=== PATIENT | female | born 1950 | race Hispanic/Latino ===

== ENCOUNTER 2022-07-16 16:31 | Inpatient (IN) | payer SELFPAY ==
--- NOTE | 2022-07-16 18:01 | RAD REPORT ---
EXAM DESCRIPTION: RAD - Chest Single View - 07/16/2022 5:46 pm CLINICAL HISTORY: FEVER Chest pain. COMPARISON: No comparisons FINDINGS: Portable technique limits examination quality. Bilateral interstitial lung markings are present and prominent suggesting a viral infection or inters titial pneumonia. The heart is upper limit normal in size. No displaced fractures.
[2022-07-16] MEDS ORDERED: NA CHLORIDE 0.9% 0 ML ONE (20:00)
[2022-07-16 20:21] LABS: Urine Blood Trace-intact (Negative); Urine Glucose 2+ (Negative); Urine Protein 1+ (Negative); Urine Specific Gravity 1.025 (1.005-1.030)
[2022-07-16] MEDS ORDERED: NA CHLORIDE 0.9% 1,000 ML ONE (20:34)
[2022-07-16 20:38] LABS: Urine Bacteria <20 /HPF (<20); Urine Crystals Unidentified Few /HPF (None Seen); Urine Mucus 2+ /HPF (None Seen)
--- NOTE | 2022-07-16 21:19 | RAD REPORT ---
EXAM DESCRIPTION: CT - Stone Protocol - 07/16/2022 9:05 pm CLINICAL HISTORY: Flank pain. low back pain COMPARISON: No comparisons TECHNIQUE: Axial images were obtained without oral or IV contrast. Lack of contrast limits solid org an and vascular assessment. The [id number] spans the entirety of the system partially obscuring uppermost abdomen and lung bases. Coronal reformatted images were obtained and reviewed. All CT scans are performed using dose optimization technique as appropriate and may include automated exposure control or mA/KV adjustment according to patient size. FINDINGS: Mild hazy opacities are present in the lung bases. Small hiatal hernia. Imaged portions of the liver and spleen show no suspicious findings on non-contrast imaging.Small sto titi are present in the gallbladder. The pancreas and adrenal glands are normal. No pathologic lymphad enopathy in the abdomen or pelvis. No urinary tract stones or obstructive uropathy. No bowel obstruction, free air, free fluid or abscess. Normal appendix noted. No significant bony abnormality. IMPRESSION: Cholelithiasis. No renal stone or hydronephrosis.
[2022-07-16 21:27] LABS: SARS-COV-2 RT PCR NEGATIVE (NEGATIVE)
[2022-07-16] MEDS ORDERED: NA CHLORIDE 0.9% 50 ML IV ONE (21:36)
[2022-07-16] MEDS ORDERED: CEFTRIAXONE 1000 MG/VIAL ONE (21:36)
[2022-07-16 21:42] LABS: Albumin 3.4 g/dL (3.4-5.0); Bilirubin Direct 0.2 mg/dL (0-0.2); Bilirubin Total 0.7 mg/dL (0.2-1.0); Magnesium 1.8 mg/dL (1.8-2.4); Potassium 3.9 mmol/L (3.5-5.1); Protein, Total 7.6 g/dL (6.4-8.2); Troponin High Sensitivity 8.3 pg/mL (<58.9)
--- NOTE | 2022-07-16 22:11 | ER ---
Nurse's Notes [facility] Name: Kenia Edwards Age: 71 yrs Sex: Female : 1950 Arrival Date: 07/16/2022 Time: 16:33 Bed 27 Private MD: Diagnosis: Pneumonia, unspecified organism;UTI/ Urinary tract infection, site not specified;Other cholelithiasis without obstruction;Severe sepsis with septic shock Presentation: 07/16 16:35 Chief complaint: Patient states: Fever - toned out EMS to home for fever. Coronavirus iw screen: At this time, the client does not indicate any symptoms associated with coronavirus-19. Ebola Screen: No symptoms or risks identified at this time. Initial Sepsis Screen: Does the patient meet any 2 criteria? No. Patient's initial sepsis screen is negative. Does the patient have a suspected source of infection? No. Patient's initial sepsis screen is negative. Risk Assessment: Do you want to hurt yourself or someone else? Patient reports no desire to harm self or others. Onset of symptoms was July 16, 2022. 16:35 Method Of Arrival: EMS: [facility] iw 16:35 Acuity: DONNA 4 iw 18:11 Acuity: DONNA 3 iw Triage Assessment: 16:36 General: Appears in no apparent distress. comfortable, Behavior is calm, cooperative, iw appropriate for age. Pain: Denies pain. EENT: No signs and/or symptoms were reported regarding the EENT system. Neuro: Level of Consciousness is awake, alert, obeys commands, Oriented to person, place, time, situation. Cardiovascular: Capillary refill < 3 seconds Patient's skin is warm and dry. Respiratory: Airway is patent Respiratory effort is even, unlabored. GI: Abdomen is flat, non-distended. : No signs and/or symptoms were reported regarding the genitourinary system. Derm: No signs and/or symptoms reported regarding the dermatologic system. Musculoskeletal: No signs and/or symptoms reported regarding the musculoskeletal system. Historical: - Allergies: 16:36 No Known Allergies; iw - PMHx: 16:36 Hypertensive disorder; iw - PSHx: 16:36 None; iw - Immunization history:: Adult Immunizations up to date, Client reports receiving the 2nd dose of the Covid vaccine. - Social history:: Smoking status: Patient denies any tobacco usage or history of. Patient/guardian denies using alcohol. Screenin:30 Abuse screen: Denies threats or abuse. Denies injuries from another. Nutritional eh3 screening: No deficits noted. Tuberculosis screening: No symptoms or risk factors identified. Fall Risk None identified. Assessment: 18:30 General: Appears in no apparent distress. comfortable, Behavior is calm, cooperative, eh3 appropriate for age. Pain: Complains of pain in head Pain does not radiate. Pain currently is 5 out of 10 on a pain scale. Quality of pain is described as aching, Pain began 1 day ago. Is intermittent. Neuro: Level of Consciousness is awake, alert, obeys commands, Oriented to person, place, time, situation. Cardiovascular: Capillary refill < 3 seconds Patient's skin is warm and dry. Respiratory: Airway is patent Respiratory effort is even, unlabored, Respiratory pattern is regular, symmetrical. GI: No signs and/or symptoms were reported involving the gastrointestinal system. : No signs and/or symptoms were reported regarding the genitourinary system. EENT: No signs and/or symptoms were reported regarding the EENT system. Derm: No signs and/or symptoms reported regarding the dermatologic system. Musculoskeletal: No signs and/or symptoms reported regarding the musculoskeletal system. 19:30 Reassessment: Patient and/or family updated on plan of care and expected duration. Pain eh3 level reassessed. Patient is alert, oriented x 3, equal unlabored respirations, skin warm/dry/pink. 20:30 Reassessment: Patient and/or family updated on plan of care and expected duration. Pain eh3 level reassessed. Patient is alert, oriented x 3, equal unlabored respirations, skin warm/dry/pink. 21:30 Reassessment: Patient and/or family updated on plan of care and expected duration. Pain eh3 level reassessed. Patient is alert, oriented x 3, equal unlabored respirations, skin warm/dry/pink. 22:30 Reassessment: Patient and/or family updated on plan of care and expected duration. Pain eh3 level reassessed. Patient is alert, oriented x 3, equal unlabored respirations, skin warm/dry/pink. Vital Signs: 16:35 BP 140 / 80; Pulse 105; Resp 18; Temp 101.0(O); Pulse Ox 95% on R/A; Weight 83.91 kg; iw Height 5 ft. 2 in. (157.48 cm); Pain 0/10; 18:30 BP 107 / 44; Pulse 98; Resp 18; Temp 99.2(O); Pulse Ox 99% on R/A; eh3 19:30 BP 114 / 53; Pulse 97; Resp 20; Pulse Ox 97% on R/A; eh3 20:30 BP 102 / 49; Pulse 93; Resp 13; Pulse Ox 97% on R/A; eh3 21:30 BP 105 / 71; Pulse 90; Resp 19; Pulse Ox 98% on R/A; eh3 22:30 BP 100 / 53; Pulse 87; Resp 18; Pulse Ox 98% on R/A; eh3 16:35 Body Mass Index 33.84 (83.91 kg, 157.48 cm) iw Vitals: 18:30 Cardiac Rhythm Assessment Sinus rhythm. eh3 ED Course: 16:33 Patient arrived in ED. am2 16:36 Triage completed. iw 16:36 Arm band placed on right wrist. iw 16:45 Behzad Jolley PA is PHCP. cp 16:45 Behzad Gonsalez MD is Attending Physician. cp 17:48 XRAY Chest (1 view) In Process Unspecified. EDMS 18:15 Annabel Heath, RN is Primary Nurse. eh3 18:30 Patient has correct armband on for positive identification. Bed in low position. Call eh3 light in reach. Side rails up X2. Adult w/ patient. Client placed on continuous cardiac and pulse oximetry monitoring. NIBP monitoring applied. Door closed. Noise minimized. Pillow given. 19:10 Inserted saline lock: 22 gauge in left antecubital area, using aseptic technique. Blood eh3 collected. 21:07 CT Stone Protocol In Process Unspecified. EDMS 22:09 Orlando Mccauley MD is Hospitalizing Provider. cp 22:31 US Abdomen Limited In Process Unspecified. EDMS 23:40 No provider procedures requiring assistance completed. Patient admitted, IV remains in eh3 place. Administered Medications: 20:09 Not Given (Physician Discretion): NS 0.9% 500 ml IV at 250 ml/hr continuous cp 20:30 Drug: NS 0.9% 1000 ml Route: IV; Rate: 500 ml/hr; Site: left antecubital; [facility] 22:30 Follow up: IV Status: Completed infusion; IV Intake: 1000ml [facility] 21:30 Drug: Rocephin - (cefTRIAXone) 1 grams Route: IVPB; Infused Over: 30 mins; Site: left [facility] antecubital; 22:00 Follow up: IV Status: Completed infusion; IV Intake: 50ml [facility] 23:00 Drug: Zithromax (azithromycin) 500 mg Route: IVPB; Infused Over: 1 hrs; [facility]; 07/17 00:42 Follow up: IV Status: Infusion continued upon admission [facility] 12 23:30 Drug: NS 0.9% (30 ml/kg) 30 ml/kg Route: IV; Rate: bolus; Site: left antecubital; [facility] 07/17 00:42 Follow up: IV Status: Infusion continued upon admission [facility] Medication: 07/16 23:41 VIS not applicable for this client. [facility] Intake: 22:00 IV: 50ml; Total: 50ml. [facility] 22:30 IV: 1000ml; Total: 1050ml. [facility] Outcome: 22:10 Decision to Hospitalize by Provider. cp 23:57 Patient left the ED. [facility] 07/17 00:43 Admitted to Med/surg accompanied by tech, via wheelchair, Report called to Julieta [facility] Condition: stable Instructed on the need for admit. Signatures: Dispatcher [employer] Caty Freeman RN Behzad Clarke PA PA cp Moreno, Amanda Annabel Calle RN RN 3
--- NOTE | 2022-07-16 22:11 | EDPHYS ---
Physician Documentation [facility] Name: Kenia Edwards Age: 71 yrs Sex: Female : 1950 Arrival Date: 07/16/2022 Time: 16:33 Bed 27 Private MD: ED Physician Behzad Gonsalez HPI: 07/16 17:40 This 71 yrs old Female presents to ER via EMS with complaints of Fever, shaky. cp 17:40 The patient reports fever, with an emergency department temperature of 101 degrees cp Fahrenheit. 17:40 Onset: The symptoms/episode began/occurred today. cp 17:40 Associated signs and symptoms: Pertinent positives: low back pain, Pertinent negatives: cp abdominal pain, altered mental status, chest pain, cough, diarrhea, headache, skin rash, sore throat, vomiting. Severity of symptoms: in the emergency department the symptoms are unchanged despite home interventions. Historical: - Allergies: 16:36 No Known Allergies; iw - PMHx: 16:36 Hypertensive disorder; iw - PSHx: 16:36 None; iw - Immunization history:: Adult Immunizations up to date, Client reports receiving the 2nd dose of the Covid vaccine. - Social history:: Smoking status: Patient denies any tobacco usage or history of. Patient/guardian denies using alcohol. ROS: 17:50 Constitutional: Positive for fever, Negative for body aches, chills, poor PO intake. cp 17:50 Eyes: Negative for injury, pain, redness, and discharge. cp 17:50 ENT: Negative for drainage from ear(s), ear pain, sore throat, difficulty swallowing, difficulty handling secretions. 17:50 Neck: Negative for pain with movement, pain at rest, stiffness. 17:50 Cardiovascular: Negative for chest pain, edema, palpitations. 17:50 Respiratory: Negative for cough, shortness of breath, wheezing. 17:50 Abdomen/GI: Negative for abdominal pain, vomiting, diarrhea, constipation, anorexia. 17:50 Back: Positive for pain at rest, of the low back area. 17:50 : Negative for urinary symptoms. 17:50 Neuro: Negative for altered mental status, headache, numbness, weakness. 17:50 All other systems are negative. Exam: 17:55 Constitutional: The patient appears in no acute distress, alert, awake, comfortable, cp non-diaphoretic, non-toxic, well developed, well nourished. 17:55 Head/Face: Normocephalic, atraumatic. cp 17:55 Eyes: Periorbital structures: appear normal, Conjunctiva: normal, no exudate, no injection, Sclera: no appreciated abnormality, Lids and lashes: appear normal, bilaterally. 17:55 ENT: External ear(s): are unremarkable, Ear canal(s): are normal, clear, TM's: bulging, is not appreciated, bilaterally, dullness, bilaterally, erythema, is not appreciated, bilaterally, Nose: is normal, Mouth: Lips: moist, Oral mucosa: moist, Posterior pharynx: Airway: no evidence of obstruction, patent, Tonsils: no enlargement, no erythema, no exudate, swelling, is not appreciated, erythema, is not appreciated, exudate, is not appreciated. 17:55 Neck: ROM/movement: is normal, is supple, without pain, no range of motions limitations, no meningismus, Lymph nodes: no appreciated lymphadenopathy. 17:55 Chest/axilla: Inspection: normal, Palpation: is normal, no crepitus, no tenderness. 17:55 Cardiovascular: Rate: tachycardic, Rhythm: regular, Edema: is not appreciated, JVD: is not appreciated. 17:55 Respiratory: the patient does not display signs of respiratory distress, Respirations: normal, no use of accessory muscles, no retractions, labored breathing, is not present, Breath sounds: are clear throughout, no decreased breath sounds, no stridor, no wheezing. 17:55 Abdomen/GI: Inspection: abdomen appears normal, Bowel sounds: active, all quadrants, Palpation: abdomen is soft and non-tender, in all quadrants. 17:55 Back: pain, that is mild, of the low back area, ROM is normal, CVA tenderness, is absent. 17:55 Skin: cellulitis, is not appreciated, no rash present. 17:55 Neuro: Orientation: to person, place \T\ time. Mentation: is normal, Motor: moves all fours, strength is normal, Sensation: is normal. 18:37 ECG was reviewed by the Attending Physician. cp Vital Signs: 16:35 BP 140 / 80; Pulse 105; Resp 18; Temp 101.0(O); Pulse Ox 95% on R/A; Weight 83.91 kg; iw Height 5 ft. 2 in. (157.48 cm); Pain 0/10; 18:30 BP 107 / 44; Pulse 98; Resp 18; Temp 99.2(O); Pulse Ox 99% on R/A; eh3 19:30 BP 114 / 53; Pulse 97; Resp 20; Pulse Ox 97% on R/A; eh3 20:30 BP 102 / 49; Pulse 93; Resp 13; Pulse Ox 97% on R/A; eh3 21:30 BP 105 / 71; Pulse 90; Resp 19; Pulse Ox 98% on R/A; eh3 22:30 BP 100 / 53; Pulse 87; Resp 18; Pulse Ox 98% on R/A; eh3 16:35 Body Mass Index 33.84 (83.91 kg, 157.48 cm) iw MDM: 16:49 Patient medically screened. [facility] 22:10 Data reviewed: vital signs, nurses notes, lab test result(s), EKG, radiologic studies, cp CT scan, plain films. 22:10 Test interpretation: by ED physician or midlevel provider: ECG, plain radiologic cp studies. Counseling: I had a detailed discussion with the patient and/or guardian regarding: the historical points, exam findings, and any diagnostic results supporting the discharge/admit diagnosis, lab results, radiology results, the need for further work-up and treatment in the hospital. Response to treatment: the patient's symptoms have mildly improved after treatment. Physician consultation: Jie Heredia PA-C was contacted at 22:00, regarding admission, to the telemetry unit. patient's condition, and will see patient in ED. 22:45 ED course: Patient qualifies for septic shock. A) source of infection is urine, B) SIRS cp criteria: HR of 105 initially and WBC of >00708 and initial temp of 101, C) organ dysfunction of elevated lactate of 2.1, two documented pressures of MAP <65. 07/16 17:29 Order name: Basic Metabolic Panel; Complete Time: 22:03 cp 07/16 22:03 Interpretation: Normal except: NA 133; GLUC 307; BUN 23; GFR 55. cp 07/16 17:29 Order name: CBC with Diff; Complete Time: 23:08 cp 07/16 17:29 Order name: LFT's; Complete Time: 22:03 07/16 22:03 Interpretation: Normal except: AST 51; ALK 141; GLOB 4.2; A/G 0.8. / 17:29 Order name: Magnesium; Complete Time: 22:03 07/16 17:29 Order name: NT PRO-BNP; Complete Time: 22:03 07/16 17:29 Order name: PT-INR; Complete Time: 23:08 07/16 17:29 Order name: Troponin HS; Complete Time: 22:03 07/16 17:58 Order name: Lactate w/ 2H reflex if indic.; Complete Time: 20:09 07/16 20:09 Interpretation: Normal except: LAC 2.1. / 17:58 Order name: Procalcitonin; Complete Time: 20:09 07/16 17:58 Order name: Blood Culture Adult (2) / 17:58 Order name: COVID-19/FLU A+B; Complete Time: 22:03 07/16 17:58 Order name: Urine Microscopic Only; Complete Time: 20:41 07/16 20:41 Interpretation: Normal except: UWBC >50; URBC 11-20. 07/16 20:21 Order name: Urine Dipstick-Ancillary; Complete Time: 20:29 [facility] 07/16 20:29 Interpretation: Normal except: UGLUC 2+; UKET 1+; UBLD Trace-intact; UPROT 1+; UESTR 1+. / 20:44 Order name: Urine Culture [facility] 07/16 17:29 Order name: XRAY Chest (1 view); Complete Time: 18:03 07/16 18:04 Interpretation: Report review. 07/16 17:29 Order name: EKG; Complete Time: 17:30 07/16 17:29 Order name: Cardiac monitoring; Complete Time: 18:39 07/16 17:29 Order name: EKG - Nurse/Tech; Complete Time: 18:39 07/16 17:29 Order name: IV Saline Lock; Complete Time: 19:27 07/16 20:30 Order name: CT Stone Protocol; Complete Time: 21:21 07/16 22:04 Order name: US Abdomen Limited; Complete Time: 22:44 07/16 22:25 Order name: Manual Differential; Complete Time: 23:08 EDMS 07/16 22:36 Order name: Lactate w/ 2H reflex if indic. sb4 07/16 22:37 Order name: Lactate Sepsis 2 HR Follow-up; Complete Time: 22:38 EDMS 07/16 23:32 Order name: Lipase; Complete Time: 23:39 EDMS 07/16 17:29 Order name: Labs collected and sent; Complete Time: 19:27 cp 07/16 17:29 Order name: O2 Per Protocol; Complete Time: 18:39 cp 07/16 17:29 Order name: O2 Sat Monitoring; Complete Time: 18:39 cp 07/16 17:58 Order name: Urine Dipstick-Ancillary (obtain specimen); Complete Time: 21:03 cp EC:37 Rate is 97 beats/min. Rhythm is regular. KS interval is normal. QRS interval is normal. cp QT interval is normal. T waves are Inverted in leads III, aVR. Interpreted by me. Reviewed by me. Administered Medications: 20:09 Not Given (Physician Discretion): NS 0.9% 500 ml IV at 250 ml/hr continuous cp 20:30 Drug: NS 0.9% 1000 ml Route: IV; Rate: 500 ml/hr; [facility] 22:30 Follow up: IV Status: Completed infusion; IV Intake: 1000ml [facility] 21:30 Drug: Rocephin - (cefTRIAXone) 1 grams Route: IVPB; Infused Over: 30 mins; Site: left [address]; 22:00 Follow up: IV Status: Completed infusion; IV Intake: 50ml [facility] 23:00 Drug: Zithromax (azithromycin) 500 mg Route: IVPB; Infused Over: 1 hrs; Site: left [facility]; 07/17 00:42 Follow up: IV Status: Infusion continued upon admission [facility] 07/16 23:30 Drug: NS 0.9% (30 ml/kg) 30 ml/kg Route: IV; Rate: bolus; Site: left antecubital; [facility] 07/17 00:42 Follow up: IV Status: Infusion continued upon admission [facility] Disposition Summary: 07/16/22 22:10 Hospitalization Ordered Hospitalization Status: Inpatient Admission cp Provider: Orlando Mccauley cp Location: Telemetry/[facility]Sur (Inpatient) cp Condition: Stable cp Problem: new cp Symptoms: have improved cp Bed/Room Type: Standard cp Room Assignment: 230(07/16/22 22:51) tw5 Diagnosis - Pneumonia, unspecified organism cp - UTI/ Urinary tract infection, site not specified cp - Other cholelithiasis without obstruction cp - Severe sepsis with septic shock cp Forms: - Medication Reconciliation Form cp - SBAR form cp Addendum: 07/19/2022 08:04 Co-signature as Attending Physician, Behzad Gonsalez MD I agree with the assessment and c tracey plan of care. Signatures: Dispatcher [employer] EDBehzad Lees MD MD cha Williams, Irene, RN RN iw Behzad Jolley PA PA cp Wood, Tiffany tw5 Annabel Heath RN RN eh3 Jie Heredia PA-C PAMohamud sb4 Corrections: (The following items were deleted from the chart) 07/16 22:51 22:10 cp tw5
[2022-07-16 22:16] LABS: Absolute Lymphocytes (CBC) 0.7 K/uL (0.7-4.9); Hematocrit 42.6 % (36.0-45.0); Lymphocytes % 2.4 % (15.3-44.8); MCV 88.8 fL (80-100); MPV 9.9 fL (7.6-11.3)
--- NOTE | 2022-07-16 22:40 | RAD REPORT ---
EXAM DESCRIPTION: US - Abdomen Exam Limited - 07/16/2022 10:30 pm CLINICAL HISTORY: elevated liver enzymes COMPARISON: No comparisons FINDINGS: The gallbladder demonstrates multiple small gallstones. No pericholecystic fluid or gallbl adder wall thickening. The common bile duct is normal measuring 4 mm. The liver demonstrates no findings of intrahepatic biliary dilatation. IMPRESSION: Cholelithiasis.
[2022-07-16 22:54] LABS: Protime INR 1.14
[2022-07-16 23:03] LABS: Blood Morphology Comment NOT SEEN (NOT SEEN); Platelet Estimate ADEQ
--- NOTE | 2022-07-16 23:10 | P.HP ---
Certification for Inpatient Patient admitted to: Inpatient With expected LOS: >2 Midnights Patient will require the following post-hospital care: None Practitioner: I am a practitioner with admitting privileges, knowledge of patient current condition, hospital course, and medical plan of care. Services: Services provided to patient in accordance with Admission requirements found in Title 42 Section 412.3 of the Code of Federal Regulations Patient History Date of Service: 07/16/22 Reason for admission: Pyelonephritis, Septic Shock History of Present Illness: Patient is a 71 year old female, Icelandic speaking only, with past medical history of hypertension who presented to the emergency department via EMS with complaints of fever. She reports it began this morning and is associated with bilateral flank pain. She denies abdominal pain, fever, nausea, vomiting, cough, shortness of breath. She was noted to be tachycardic and febrile upon arrival to ED. Her labs are significant for WBC 29 with bandemia, sodium 133, glucose 307, BUN 23, AST 51, alk phos 141, lactate 2.1, procal 1.61, urine positive for UTI with WBC > 50. CT abomen pelvis showed " Cholelithiasis. No renal stone or hydronephrosis." Chest xray showed "Bilateral interstitial lung markings are present and prominent suggesting a viral infection or interstitial pneumonia. The heart is upper limit normal in size. No displaced fractures." Abdominal US showed "The gallbladder demonstrates multiple small gallstones. No pericholecystic fluid or gallbladder wall thickening. The common bile duct is normal measuring 4 mm. The liver demonstrates no findings of intrahepatic biliary dilatation." 2 hour repeat lactate was 2.5. She was given 1 gram Tylenol, Rocephin, and azithromycin in ED. Additionally, she was noted to have 2 BPs with MAP < 65, meeting septic shock criteria. Sepsis fluids were initiated and blood/urine cultures obtained. Patient is admitted for further management. Home medications list reviewed: Yes - Past Medical/Surgical History Diabetic: No -: Hypertension -: COVID [place] -: Hysterectomy Psychosocial/ Personal History: Patient lives at home with her son. - Family History Mother -: Diabetes - Social History Smoking Status: Never smoker Alcohol use: No CD- Drugs: No Caffeine use: Yes Place of Residence: Home Review of Systems General: Fever Gastrointestinal: Other (Flank Pain) Physical Examination - Vital Signs Temperature: 99.2 F Blood Pressure: 102/49 Pulse: 93 Respirations: 13 Pulse Ox (%): 97 - Physical Exam General: Alert, In no apparent distress, Obese HEENT: Atraumatic, PERRLA, EOMI, Sclerae nonicteric Neck: Supple, 2+ carotid pulse no bruit, No LAD, Without JVD or thyroid abnormality Respiratory: Clear to auscultation bilaterally, Normal air movement Cardiovascular: Regular rate/rhythm, Normal S1 S2 Gastrointestinal: Normal bowel sounds, No tenderness Musculoskeletal: No tenderness Integumentary: No rashes Neurological: Normal speech, Normal strength at 5/5 x4 extr, Normal tone, Normal affect - Studies Laboratory Data (last 24 hrs) 07/16/22 22:02: PT 12.5, INR 1.14 07/16/22 22:02: WBC 29.70 H*, Hgb 14.0, Hct 42.6, Plt Count 206 07/16/22 19:15: Sodium 133 L, Potassium 3.9, BUN 23 H, Creatinine 1.09, Glucose 307 H, Magnesium 1.8, Total Bilirubin 0.7, AST 51 H, ALT 78, Alkaline Phosphatase 141 H Assessment and Plan - Problems (Diagnosis) (1) Septic shock Current Visit: Yes Status: Acute (2) Pyelonephritis Current Visit: Yes Status: Acute (3) Pneumonia Current Visit: Yes Status: Acute Qualifiers: Pneumonia type: due to unspecified organism Laterality: bilateral (4) Hypertension Current Visit: Yes Status: Chronic Qualifiers: Hypertension type: primary hypertension Qualified Code(s): I10 - Essential (primary) hypertension (5) Type 2 diabetes mellitus Current Visit: Yes Status: Chronic Qualifiers: Diabetes mellitus chcf insulin use: without chcf use Diabetes mellitus complication status: with hyperglycemia Qualified Code(s): E11.65 - Type 2 diabetes mellitus with hyperglycemia - Plan Septic Shock secondary to pyelonephritis/UTI: source of infection + tachycardia + leukocytosis + + fever + lactate 2.1 + 2 BPs < 65. repeat lactate 2.5. Will continue to trend until downtrending or < 2. Blood and urine cultures obtained. 30 cc/kg fluid bolus initiated in ED as well as rocephin and azithromycin. Continue rocephin daily. 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 patient denies cough, shortness of breath, wheezing. Blood cultures obtained. Will continue rocephin and azithromycin for now. Hypertension: reconcile and continue home medications. Hydralazine PRN BP spikes. Type 2 diabetes: patient denies history of type 2 diabetes although blood sugar is elevated at 302. She denies any recent steroid use. Will check A1c. ACHS accu checks with sliding scale as needed. Monitor and replete electrolytes per protocol Reconcile and continue home medications Lovenox for VTE prophylaxis Full code Discharge Plan: Home Plan to discharge in: Greater than 2 days - Advance Directives Does patient have a Living Will: No Does patient have a Durable POA for Healthcare: No - Code Status/Comfort Care Code Status Assessed: Yes Code Status: Full Code Critical Care: No Time Spent Managing Pts Care (In Minutes): 50
[2022-07-16] MEDS ORDERED: NA CHLORIDE 0.9% 250 ML ONE (23:17)
[2022-07-16] MEDS ORDERED: AZITHROMYCIN 500 MG INJ IVPB ONE (23:17)
[2022-07-16] MEDS ORDERED: NA CHLORIDE 0.9% 2,000 ML ONE (23:18)
[2022-07-16] MEDS ORDERED: NA CHLORIDE 0.9% 500 ML ONE (23:18)
[2022-07-16] MEDS ORDERED: NA CHLORIDE 0.9% 1,000 ML IV SCH (23:43)
[2022-07-16] MEDS ORDERED: ONDANSETRON 4 MG/2 ML VIAL IV PRN (23:43)
[2022-07-17] MEDS ORDERED: FENTANYL CITR 100 MCG/2 ML IV ONE (00:40)
[2022-07-17] MEDS ORDERED: KETOROLAC 30 MG/ML INJ IV ONE (00:40)
--- NOTE | 2022-07-17 01:35 | P.INFCA ---
Sepsis Focused Assessment - Focused Assessment Complete? Sepsis Focused Assessment Completed?: Yes - Sepsis Screen Result Severe Sepsis: Positive Septic Shock: Negative - Evaluation Current stage of sepsis: Severe sepsis - Vital Signs Reviewed: Yes Temperature: 98 F Heart rate: 95 Blood Pressure: 115/71 Respiratory Rate: 18 O2 Sat by Pulse Oximetry: 98 (room air)
[2022-07-17 07:49] LABS: Albumin 2.6 g/dL (3.4-5.0); Bilirubin Total 0.6 mg/dL (0.2-1.0); Magnesium 1.8 mg/dL (1.8-2.4); Phosphorus 3.2 mg/dL (2.5-4.9); Thyroid Stimulating Hormone 2.69 uIU/mL (0.360-3.740)
--- NOTE | 2022-07-17 07:50 | EKG ---
Test Date: 2022-07-16 Test Time: 18:33:13 Ball Machine Operator: BING MEASUREMENT RESULTS: Intervals: Rate: 97 PA: 162 QRSD: 100 QT: 366 QTc: 464 [place]: P: 44 PA: 162 QRS: -55 T: 7 INTERPRETIVE STATEMENTS: Normal sinus rhythm Left anterior fascicular block Minimal voltage criteria for LVH, may be normal variant Abnormal ECG No previous ECG available for comparison Electronically Signed On 07-17-22 07:48:51 STOCK WORKER by Franklin Sarabia
[2022-07-17 07:55] LABS: Absolute Lymphocytes (CBC) 0.9 K/uL (0.7-4.9); Hematocrit 35.6 % (36.0-45.0); Lymphocytes % 4.6 % (15.3-44.8); MCV 88.2 fL (80-100); MPV 10.3 fL (7.6-11.3); RBC Red Blood Cell Count 4.04 M/uL (3.86-4.86)
[2022-07-17] MEDS: ENOXAPARIN 40 MG/0.4 ML SQ SCH (09:28)
[2022-07-17] MEDS: INSULIN -REGULAR HUMAN 50 UNIT/0.5 ML ML SQ SCH ×4 (09:29→20:37)
[2022-07-17] MEDS: ACETAMINOPHEN 500 MG TAB PO PRN ×2 (10:26→20:42)
[2022-07-17] MEDS: NA CHLORIDE 0.9% 1,000 ML IV SCH ×2 (10:28→14:02)
--- NOTE | 2022-07-17 15:32 | P.PN ---
Subjective Date of Service: 07/17/22 Subjective: No new changes, No C/O voiced, Improving Review of Systems 10-point ROS is otherwise unremarkable Physical Examination - Vital Signs Temperature: 98.8 F Blood Pressure: 120/48 Pulse: 121 Respirations: 16 Pulse Ox (%): 98 - Physical Exam General: Alert, In no apparent distress, Oriented x3 Respiratory: Clear to auscultation bilaterally, Normal air movement Cardiovascular: Regular rate/rhythm, Normal S1 S2, No murmurs Gastrointestinal: Normal bowel sounds, Soft and benign, Non-distended, No tenderness Musculoskeletal: No clubbing, No swelling, No tenderness Neurological: Sensation intact, Cranial nerves 3-12 intact - Studies Laboratory Data (last 24 hrs) 07/16/22 22:02: PT 12.5, INR 1.14 07/16/22 22:02: WBC 29.70 H*, Hgb 14.0, Hct 42.6, Plt Count 206 07/16/22 19:15: Lipase 197 07/16/22 19:15: Sodium 133 L, Potassium 3.9, BUN 23 H, Creatinine 1.09, Glucose 307 H, Magnesium 1.8, Total Bilirubin 0.7, AST 51 H, ALT 78, Alkaline Phosphatase 141 H Medications List Reviewed: Yes Assessment & Plan - Problems (Diagnosis) (1) Pneumonia Current Visit: Yes Status: Acute Qualifiers: Pneumonia type: due to unspecified organism Laterality: bilateral (2) Pyelonephritis Current Visit: Yes Status: Acute (3) Septic shock Current Visit: Yes Status: Acute (4) Hypertension Current Visit: Yes Status: Chronic Qualifiers: Hypertension type: primary hypertension Qualified Code(s): I10 - Essential (primary) hypertension (5) Type 2 diabetes mellitus Current Visit: Yes Status: Chronic Qualifiers: 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 Continue with IV antibiotics 2. Awaiting cultures 3. Repeat chest x-ray 4. CT scan of the chest 5. Appreciate pulmonary consultation 6. Continue with nebs as needed 7. O2 per protocol 8. Continue with gentle hydration 9. Repeat labs 10. GI and DVT prophylaxis Discharge Plan: Home Plan to discharge in: Greater than 2 days - Advance Directives Does patient have a Living Will: No Does patient have a Durable POA for Healthcare: No - Code Status/Comfort Care Code Status: Full Code Critical Care: No Time Spent Managing PTS Care (In Minutes): 35
[2022-07-17] MEDS ORDERED: CEFTRIAXONE 1,000 MG in NA CHLORIDE 0.9% 50 ML IVPB SCH (21:00)
[2022-07-17] MEDS ORDERED: AZITHROMYCIN IV 500 MG in NA CHLORIDE 0.9% 250 ML IVPB SCH (21:00)
[2022-07-18] MEDS: NA CHLORIDE 0.9% 1,000 ML IV SCH ×2 (02:16→15:41)
[2022-07-18 05:52] LABS: Absolute Lymphocytes (CBC) 1.3 K/uL (0.7-4.9); Hematocrit 36.6 % (36.0-45.0); Lymphocytes % 9.9 % (15.3-44.8); MCV 88.3 fL (80-100); MPV 9.8 fL (7.6-11.3); RBC Red Blood Cell Count 4.14 M/uL (3.86-4.86)
[2022-07-18 06:33] LABS: Albumin 2.7 g/dL (3.4-5.0); Bilirubin Total 0.7 mg/dL (0.2-1.0); Magnesium 2.1 mg/dL (1.8-2.4); Potassium 3.8 mmol/L (3.5-5.1); Protein, Total 6.7 g/dL (6.4-8.2)
[2022-07-18] MEDS ORDERED: POTASSIUM CL SA 10 MEQ TAB PO ONE (09:00)
[2022-07-18] MEDS: INSULIN -REGULAR HUMAN 50 UNIT/0.5 ML ML SQ SCH ×4 (10:01→21:31)
[2022-07-18] MEDS: ENOXAPARIN 40 MG/0.4 ML SQ SCH (10:01)
[2022-07-18] MEDS: ACETAMINOPHEN 500 MG TAB PO PRN (14:43)
[2022-07-18] MEDS ORDERED: METHYLPREDNISOLONE 40 MG INJ IV ONE (14:54)
[2022-07-18] MEDS: VANCOMYCIN 1.5 GM in NA CHLORIDE 0.9% 500 ML IVPB SCH (16:09)
[2022-07-18] MEDS: AMPICILLIN/SULBACT 3 GM in NA CHLORIDE 0.9% 100 ML IVPB SCH (16:09)
[2022-07-18] MEDS ORDERED: DIPHENHYDRAMINE 50 MG/ML VIAL IV ONE (17:01)
[2022-07-18] MEDS: METOPROLOL TAR 50 MG TAB PO SCH (21:30)
[2022-07-18] MEDS: predniSONE 20 MG TAB PO SCH (21:30)
[2022-07-19] MEDS: AMPICILLIN/SULBACT 3 GM in NA CHLORIDE 0.9% 100 ML IVPB SCH ×3 (00:27→16:52)
[2022-07-19 00:58] VITALS: BMI 33.5
[2022-07-19] MEDS ORDERED: DIPHENHYDRAMINE 50 MG/ML VIAL IV ONE (02:07)
[2022-07-19 04:00] LABS: Absolute Lymphocytes (CBC) 0.5 K/uL (0.7-4.9); Hematocrit 35.4 % (36.0-45.0); MCV 87.9 fL (80-100); MPV 10.3 fL (7.6-11.3); RBC Red Blood Cell Count 4.03 M/uL (3.86-4.86)
[2022-07-19 04:21] LABS: Albumin 2.5 g/dL (3.4-5.0); Bilirubin Total 0.5 mg/dL (0.2-1.0); Potassium 4.1 mmol/L (3.5-5.1); Protein, Total 6.4 g/dL (6.4-8.2)
[2022-07-19] MEDS: ENOXAPARIN 40 MG/0.4 ML SQ SCH (08:30)
[2022-07-19] MEDS: predniSONE 20 MG TAB PO SCH (08:31)
[2022-07-19] MEDS: METOPROLOL TAR 50 MG TAB PO SCH (08:31)
[2022-07-19] MEDS: INSULIN -REGULAR HUMAN 50 UNIT/0.5 ML ML SQ SCH ×3 (08:32→16:53)
[2022-07-19] MEDS: NA CHLORIDE 0.9% 1,000 ML IV SCH ×2 (08:37→16:53)
[2022-07-19] MEDS ORDERED: LOSARTAN POTASSIUM 50 MG TABLET PO SCH (09:00)
[2022-07-19 16:18] VITALS: O2SAT 97
[2022-07-19 16:19] VITALS: BP 152/74; TEMP 97.2
[2022-07-19] MEDS: VANCOMYCIN 1.5 GM in NA CHLORIDE 0.9% 500 ML IVPB SCH (16:52)
--- NOTE | 2022-07-26 15:28 | P.PN ---
Date of Service: 07/18/22 Subjective Subjective: Patient is feeling better. Respiratory status has improved. No fever. White count is improved. Anticipate discharge in the morning. Review of Systems 10-point ROS is otherwise unremarkable Physical Examination - Vital Signs Reviewed - Physical Exam General: Alert, In no apparent distress, Oriented x3 Respiratory: Clear to auscultation bilaterally, Normal air movement Cardiovascular: Regular rate/rhythm, Normal S1 S2, No murmurs Gastrointestinal: Normal bowel sounds, Soft and benign, Non-distended, No tenderness Musculoskeletal: No clubbing, No swelling, No tenderness Neurological: Sensation intact, Cranial nerves 3-12 intact Assessment & Plan - Problems (Diagnosis) (1) Pneumonia Current Visit: Yes Status: Acute Qualifiers: Pneumonia type: due to unspecified organism Laterality: bilateral (2) Pyelonephritis Current Visit: Yes Status: Acute (3) Septic shock Current Visit: Yes Status: Acute (4) Hypertension Current Visit: Yes Status: Chronic Qualifiers: Hypertension type: primary hypertension Qualified Code(s): I10 - Essential (primary) hypertension (5) Type 2 diabetes mellitus Current Visit: Yes Status: Chronic Qualifiers: Diabetes mellitus half-way insulin use: without half-way use Diabetes mellitus complication status: with hyperglycemia Qualified Code(s): E11.65 - Type 2 diabetes mellitus with hyperglycemia - Plan Continue with plan of care as mentioned below: 1. Continue with IV antibiotics 2. Awaiting cultures 3. Repeat chest x-ray 4. CT scan of the chest 5. Appreciate pulmonary consultation 6. Continue with nebs as needed 7. O2 per protocol 8. Continue with gentle hydration 9. Repeat labs 10. GI and DVT prophylaxis
--- NOTE | 2022-07-26 15:29 | P.DS ---
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 She reports it began this morning and is associated with bilateral flank pain. She denies abdominal pain, fever, nausea, vomiting, cough, shortness of breath. She was noted to be tachycardic and febrile upon arrival to ED. Her labs are significant for WBC 29 with bandemia, sodium 133, glucose 307, BUN 23, AST 51, alk phos 141, lactate 2.1, procal 1.61, urine positive for UTI with WBC > 50. CT abomen pelvis showed " Cholelithiasis. No renal stone or hydronephrosis." Chest xray showed "Bilateral interstitial lung markings are present and prominent suggesting a viral infection or interstitial pneumonia. The heart is upper limit normal in size. No displaced fractures." Abdominal US showed "The gallbladder demonstrates multiple small gallstones. No pericholecystic fluid or gallbladder wall thickening. The common bile duct is normal measuring 4 mm. The liver demonstrates no findings of intrahepatic biliary dilatation." 2 hour repeat lactate was 2.5. She was given 1 gram Tylenol, Rocephin, and azithromycin in ED. Additionally, she was noted to have 2 BPs with MAP < 65, meeting septic shock criteria. Sepsis fluids were initiated and blood/urine cultures obtained. Patient is admitted for further management. Hospital Course: Patient has done well during hospitalization. Pneumonia has improved. Polynephritis has pretty much cleared up. Discharged on oral antibiotics. Outpatient follow up with pulmonary and urology. Return to the Emergency room if symptoms worsen. At this time, patient is stable for discharge home. Vital Signs/Physical Exam: Temp Pulse Resp BP Pulse Ox 97.2 F 70 18 152/74 H 97 07/19/22 16:00 07/19/22 16:00 07/19/22 16:00 07/19/22 16:00 07/19/22 16:00 General: Alert, In no apparent distress, Oriented x3 Laboratory Data at Discharge: WBC 7.80 K/uL (4.3-10.9) 07/19/22 03:31 Hgb 12.1 g/dL (12.0-15.0) 07/19/22 03:31 Hct 35.4 % (36.0-45.0) L 07/19/22 03:31 Plt Count 175 K/uL (152-406) 07/19/22 03:31 PT 12.5 SECONDS (9.5-12.5) 07/16/22 22:02 INR 1.14 07/16/22 22:02 Sodium 136 mmol/L (136-145) 07/19/22 03:31 Potassium 4.1 mmol/L (3.5-5.1) 07/19/22 03:31 BUN 17 mg/dL (7-18) 07/19/22 03:31 Creatinine 0.66 mg/dL (0.55-1.3) 07/19/22 03:31 Glucose 299 mg/dL (74-106) H 07/19/22 03:31 Phosphorus 3.2 mg/dL (2.5-4.9) 07/17/22 07:13 Magnesium 2.1 mg/dL (1.8-2.4) 07/18/22 05:29 Total Bilirubin 0.5 mg/dL (0.2-1.0) 07/19/22 03:31 AST 17 U/L (15-37) 07/19/22 03:31 ALT 38 U/L (12-78) 07/19/22 03:31 Alkaline Phosphatase 103 U/L (45-117) 07/19/22 03:31 Triglycerides 135 mg/dL (<150) 07/17/22 07:13 Cholesterol 139 mg/dL (<200) 07/17/22 07:13 HDL Cholesterol 40 mg/dL (40-60) 07/17/22 07:13 Cholesterol/HDL Ratio 3.48 07/17/22 07:13 Lipase 197 U/L (73-393) 07/16/22 19:15 Home Medications: Losartan Potassium 50 mg PO BID 07/18/22 Metoprolol Tartrate 100 mg PO BID 07/18/22 Metformin HCl [Glucophage*] 500 mg PO BIDWM #60 tab 07/19/22 Minocycline HCl 100 mg PO BID #20 tab 07/19/22 Sulfamethoxazole/Trimethoprim [Bactrim Ds Tablet] 1 each PO BID #20 tab 07/19/22 glyBURIDE [Glyburide] 5 mg PO BID #60 tab 07/19/22 predniSONE [Prednisone*] 20 mg PO BID #11 tab 07/19/22 New Medications: Sulfamethoxazole/Trimethoprim [Bactrim Ds Tablet] 1 each PO BID #20 tab Metformin HCl [Glucophage*] 500 mg PO BIDWM #60 tab glyBURIDE [Glyburide] 5 mg PO BID #60 tab Minocycline HCl 100 mg PO BID #20 tab predniSONE [Prednisone*] 20 mg PO BID #11 tab Physician Discharge Instructions: -DC IV and DC home -Follow-up with PCP in 1 to 2 weeks -Please call Dr. Mccauley at [phone] if any questions regarding hospital stay -Please call nursing station at [phone] if any nursing or medication questions -Return to the emergency room if symptoms worsen Diet: AHA Activity: Fall precautions Followup: NONE,NONE [Primary Care Provider] - Time spent managing pt's care (in minutes): 35
== END 2022-07-19 18:35 | disposition home or self-care (01) | DRG 871 ==
LOC: ER 16:31 → ERHOLD 22:50 → 2ND 23:40
PROVIDERS: ADMIT Hospitalist; ATTEND Hospitalist
DX: A41.9 Sepsis, unspecified organism (principal); J18.9 Pneumonia, unspecified organism; R65.21 Severe sepsis with septic shock; N10 Acute pyelonephritis; L03.116 Cellulitis of left lower limb; I10 Essential (primary) hypertension; E11.65 Type 2 diabetes mellitus with hyperglycemia; E66.9 Obesity, unspecified; Z68.33 Body mass index [BMI] 33.0-33.9, adult; Z86.16 Personal history of COVID-19; Z79.84 Long term (current) use of oral hypoglycemic drugs; Z79.52 Long term (current) use of systemic steroids; Z90.710 Acquired absence of both cervix and uterus; Z79.899 Other long term (current) drug therapy; Z20.822 Contact with and (suspected) exposure to COVID-19
CPT/HCPCS: 0240U; 36415; 71045; 74176; 76377; 76705; 80048; 80053; 80061; 80076; 81003; 81015; 82947; 83036; 83605; 83690; 83735; 83880; 84100; 84145; 84443; 84484; 85025; 85610; 87040; 87086; 87088; 93005; 94760; 96361; 96365; 96367; 96368; 99285; J0295; J0456; J1200; J1650; J1815; J2920; J3010; J3370; J7030; J7040; J7050; J7512